=== PATIENT | female | born 1980 | race Caucasian/White ===

== ENCOUNTER 2024-11-12 08:09 | Emergency (ER) | payer MEDICAID, SELFPAY ==
--- NOTE | 2024-11-12 08:14 | EKG_ITS ---
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
[2024-11-12 08:15] VITALS: BP 121/79; PULSE 79; RESP 17; TEMP 36.7; O2SAT 96
[2024-11-12 08:16] VITALS: BMI 33.1
--- NOTE | 2024-11-12 08:36 | XR_ITS ---
Examination: PA lateral chest 2 views TECHNIQUE: Upright PA and lateral chest 2 views Date and time: November 12, 2024, 0844 hours INDICATIONS: Chest pain radiating to the left arm today. FINDINGS: Minimal prominence left ventricle. No pneumonia or pulmonary edema. The osseous structures are intact. IMPRESSION: No active disease.
[2024-11-12 09:03] LABS: HCG Qualitative,Urine Negative
[2024-11-12 09:12] LABS: Amphetamine/Methamp Scrn,U Negative (Negative); Barbiturate Screen,Urine Negative (Negative); Benzodiazepines Screen,Urine Negative (Negative); Benzoylecgonine Screen, Ur Negative (Negative); Fentanyl Screen,Urine Negative (Negative); Opiate Screen,Urine Negative (Negative); THC Screen,Urine Negative (Negative)
[2024-11-12 10:06] LABS: INR 1.0 (0.9-1.3); Partial Thromboplastin Time 27.0 Seconds (22.0-36.0); Prothrombin Time 11.2 Seconds (9.0-12.2)
[2024-11-12 10:07] LABS: B-Type Natriuretic Peptide < 20 pg/mL (0-100); Basophils # (Auto) 0.1 Thou/mm3 (0.0-0.2); Basophils % (Auto) 1 % (0-2.5); Eosinophils # (Auto) 0.2 Thou/mm3 (0.0-0.5); Eosinophils % (Auto) 3 % (0-10); Hematocrit 39.7 % (36.0-46.0); Hemoglobin 13.5 g/dL (12.0-16.0); Immature Granulocytes Auto 0.02 Thou/mm3 (0.00-0.00); Lymphocytes # (Auto) 1.3 Thou/mm3 (1.0-4.8); Lymphocytes % (Auto) 20 % (10-50); Mean Corpuscular HGB Conc 34.0 g/dl (31.0-37.0); Mean Corpuscular Hemoglobin 29.1 pg (25.0-35.0); Mean Corpuscular Volume 86 fL (80-100); Monocytes # (Auto) 0.4 Thou/mm3 (0.0-0.8); Monocytes % (Auto) 7 % (0-12); Neutrophils # (Auto) 4.6 Thou/mm3 (1.8-7.7); Neutrophils % (Auto) 69 % (37-80); Nucleated Red Blood Cell # 0.00 Thou/mm3 (0.00-0.00); Nucleated Red Blood Cell % 0 /100 WBC (0); Platelet Count 314 Thou/mm3 (140-440); RDW Standard Deviation 37.9 fL (36.4-46.3); Red Blood Count 4.64 Miln/mm3 (4.00-5.20); White Blood Count 6.6 Thou/mm3 (3.6-11.0)
[2024-11-12 10:09] LABS: Alanine Aminotransferase 12 U/L (10-49); Albumin, Serum 4.6 gm/dL (3.5-5.0); Albumin/Globulin Ratio 1.8 (1.2-2.2); Alkaline Phosphatase 58 U/L (46-116); Anion Gap 7 (7-16); Aspartate Amino Transferase 15 U/L (0-34); BUN/Creatinine Ratio 10 Ratio (12-20); Bilirubin,Total 0.6 mg/dL (0.3-1.2); Blood Urea Nitrogen 8 mg/dL (9-23); Calcium 9.7 mg/dL (8.3-10.6); Calcium (Corrected) 9.7 mg/dL (8.5-10.1); Carbon Dioxide 28.1 mMol/L (20.0-31.0); Chloride 106 mMol/L (98-107); Creatinine (Component) 0.8 mg/dL (0.6-1.3); Estimated Creatinine Clearance 94.6 mL/min (>60); Globulin 2.5 gm/dL (2.3-3.5); Glucose 90 mg/dL (74-106); Osmolality,Calculated 279 (275-295); Potassium 3.9 mMol/L (3.4-5.1); Sodium 141 mMol/L (136-145); Total Protein 7.1 gm/dL (5.7-8.2); Troponin I < 0.002 ng/mL (0.0-0.045); eGFR > 60 See Note
--- NOTE | 2024-11-12 10:58 | PD.EDRME ---
Rapid Medical Screening Exam RME Arrival date/time: 11/12/24 08:09 44-year-old female presents emergency department today for complaints of chest pain Chief Complaint: Chest Pain Time Seen by Provider: 11/12/24 08:37 Vital signs: Vital Signs Temperature 98.1 F 11/12/24 08:15 Pulse Rate 79 11/12/24 08:15 Respiratory Rate 17 11/12/24 08:15 Blood Pressure 121/79 11/12/24 08:15 Pulse Oximetry (%) 96 11/12/24 08:15 Oxygen Delivery Method Room Air 11/12/24 08:15
[2024-11-12 11:20] LABS: D-Dimer < 250 ng/mL (<600)
[2024-11-12 11:53] LABS: Troponin I < 0.002 ng/mL (0.0-0.045)
--- NOTE | 2024-11-12 12:19 | EDNOTE_ITS ---
ED Chest Pain RME/HPI General Chief Complaint: Chest Pain Stated Complaint: SHARP PAIN L) CHEST, ARM NUMB, BLURRY VISION, SOB Time Seen by Provider: 11/12/24 08:37 Source: patient Arrival date/time: 11/12/24 08:09 44-year-old female with a history of anxiety presents to the emergency room today with a chief complaint of left-sided sternal chest pain that radiates to her arm as well as blurry vision x 2 days Mode of arrival: ambulatory Limitations: no limitations RME / HPI RME / HPI narrative: 11/12/24 08:09 44-year-old female presents emergency department today for complaints of chest pain Related Data Home Medications ?Medication ?Instructions ?Recorded ?Confirmed tirzepatide (weight loss) 2.5 2.5 mg subcut QWEEK 05/1906/16/23 mg/0.5 mL subcutaneous pen injector (Zepbound) Previous Rx's ?Medication ?Instructions ?Recorded alprazolam 0.25 mg tablet (Xanax) 0.25 mg PO TID PRN a nxiety #14 tabs 10/13/23 Allergies Allergy/AdvReac Type Severity Reaction Status Date / Time Penicillins Allergy Intermediate RASH Verified 11/12/24 08:12 Sulfa (Sulfonamide Allergy Intermediate RASH Verified 11/12/24 08:12 Antibiotics) Review of Systems Review of Systems Systems Reviewed: All systems reviewed, normal except as documented Constitutional Constitutional: Reports system reviewed and no additional complaints, except as documented, Denies fatigue, Denies fever(s), Denies headache(s) and Denies weakness Eyes Eyes: Reports system reviewed and no additional complaints, except as documented, Denies blurry vision and Denies change in vision ENT Ears, Nose, Mouth, and Throat: Reports system reviewed and no additional complaints, except as documented, Denies otalgia, Denies headache(s), Denies nasal congestion, Denies throat swelling and Denies vertigo Cardiovascular Cardiovascular: Reports system reviewed and no additional complaints, except as documented, Reports chest pain, Reports chest pain at rest, Reports chest pain with activity, Denies dyspnea and Denies dyspnea on exertion Respiratory Respiratory: Reports system reviewed and no additional complaints, except as documented, Denies chest congestion, Denies cough, Denies dyspnea, Denies dyspnea on exertion and Denies wheezing Gastrointestinal Gastrointestinal: Reports system reviewed and no additional complaints, except as documented, Denies abdominal pain, Denies cramping, Denies nausea and Denies vomiting Genitourinary Genitourinary: Reports system reviewed and no additional complaints, except as documented Musculoskeletal Musculoskeletal: Reports system reviewed and no additional complaints, except as documented and Denies back pain Integumentary/Breasts Skin/Breast: Reports system reviewed and no additional complaints, except as documented and Denies wounds Neurologic Neurologic: Reports system reviewed and no additional complaints, except as documented, Denies confusion, Denies headache(s), Denies lack of coordination, Denies vertigo and Denies weakness Psychiatric Psychiatric: Reports system reviewed and no additional complaints, except as documented, Denies anxiety, Denies confusion, Denies depression, Denies paranoia, Denies suicidal ideation and Denies tactile hallucinations Endocrine Endocrine: Reports system reviewed and no additional complaints, except as documented and Denies fatigue Hematologic/Lymphatic Hematologic/Lymphatic: Reports system reviewed and no additional complaints, except as documented and Denies lymphadenopathy Allergic/Immunologic Allergic/Immunologic: Reports system reviewed and no additional complaints, except as documented, Denies throat swelling, Denies urticaria and Denies wheezing ED Exam General Limitations: Present no limitations General appearance: Present alert and in no apparent distress Head Head exam: Present atraumatic Eye Eye exam: Present normal appearance, PERRL and EOMI ENT ENT exam: Present normal exam, normal oropharynx and mucous membranes moist Neck Neck exam: Present normal inspection, full ROM and trachea midline Chest Chest inspection: Present normal inspection and symmetric chest wall rise Respiratory Respiratory exam: Present normal lung sounds bilaterally; Absent respiratory distress, wheezes, stridor, accessory muscle use or prolonged expiratory phase Cardiovascular Cardiovascular exam: Present regular rate, normal rhythm, normal heart sounds, +S1 and +S2; Absent bradycardia, tachycardia, irregular rhythm, systolic murmur, diastolic murmur, rubs, gallop, clicks or JVD Abdominal Exam Abdominal exam: Present soft and normal bowel sounds; Absent tenderness Extremities Exam Extremities exam: Present normal inspection and full ROM Back Exam Back exam: Present normal inspection and full ROM Neurological Exam Neurological exam: Present alert, oriented X3 and CN II-XII intact Psychiatric Psychiatric exam: Present normal affect and normal mood Skin Skin exam: Present warm, dry, intact and normal color Course Quality Measures none Orders Category Date Time Status EKG (ED ONLY) *Do not use* NOW Care 11/12/24 08:14 Completed EKG (ED Only) Stat Exams 11/12/24 08:14 Draft XR chest 2V Stat Exams 11/12/24 08:36 Completed B-Type Natriuretic Peptide Stat Lab 11/12/24 09:38 Completed CBC Stat Lab 11/12/24 09:38 Completed Comprehensive Metabolic Panel Stat Lab 11/12/24 09:38 Completed D-Dimer Stat Lab 11/12/24 09:38 Completed Drug Screen,Urine Stat Lab 11/12/24 08:41 Completed HCG Qualitative,Urine Stat Lab 11/12/24 08:41 Completed Partial Thromboplastin Time Stat Lab 11/12/24 09:38 Completed Prothrombin Time with INR Stat Lab 11/12/24 09:38 Completed Troponin I Stat Lab 11/12/24 09:38 Completed Troponin I Stat Lab 11/12/24 11:19 Completed Vital Signs Vital signs: Vital Signs Temperature 98.1 F 11/12/24 08:15 Pulse Rate 79 11/12/24 08:15 Respiratory Rate 17 11/12/24 08:15 Blood Pressure 121/79 11/12/24 08:15 Pulse Oximetry (%) 96 11/12/24 08:15 Oxygen Delivery Method Room Air 11/12/24 08:15 O2 saturation 96% within normal limits Chest Pain MDM Narrative MDM Narrative:: 44-year-old female with a history of anxiety presents to the emergency room today with a chief complaint of left-sided sternal chest pain that radiates to her arm as well as blurry vision x 2 days Physical examination shows a strong and regular rhythm S1 and S2 noted patient is hemodynamically stable and in no apparent distress CBC CMP troponin were all within normal limits. EKG shows normal sinus rhythm at [address] deviation Chest x-ray was completed and was negative for any pneumonic infiltrates or any acute findings Patient was discharged and educated to follow-up with primary care provider in the next 24 to 48 hours and return to the emergency room for any evidence of worsening signs or symptoms Patient data External records reviewed:: [facility] previous records Clinical information provided by:: patient Social determinants that could affect healthcare access:: none Patient has the following chronic illnesses:: Anxiety How is presenting disease/condition affected by chronic disease/condition?: exacerbated by Evaluation data The following diagnostics were reviewed and interpreted by me:: lab results and radiology exam(s) Lab and/or radiology exams considered but not ordered:: Labs and radiology exams considered and ordered Interpretation Summary: Chest [id number]: Minimal prominence left ventricle. No pneumonia or pulmonary edema. The osseous structures are intact. IMPRESSION: No active disease. Medications / Prescriptions Medications or Prescriptions considered but not ordered:: Medication not given Medication administrations:: Medication not given Consultations Consultation(s) initiated? (list below): No Diagnosis Chest Pain Differential Diagnosis: stable angina, unstable angina pectoris, atypical chest pain, st elevation myocardial infarction, costochondritis and chest pain Most likely diagnosis given after review of the tests above:: Chest pain Admission Indicated Admission indicated?: not indicated Admission Request Was there a request for admission?: No Disposition Plan Disposition Plan: Discharge Discharge Attestation Discharge Attestation: The patient and all family members were given an opportunity to ask questions and understood the discharge instructions. Discharge instructions specifically effects, indications for sooner follow up or return to the emergency department, and the expected course of current diagnosis. Patient condition: Stable Discharge Plan Plan Patient Disposition: HOME (Self Care) Discharge Disposition comment: Stable Prescriptions/Referrals Prescriptions/Med Rec: No Action alprazolam [Xanax] 0.25 mg tablet 0.25 mg PO TID PRN (Reason: anxiety) Qty: 14 0RF Zepbound 2.5 mg/0.5 mL Pen Injector 2.5 mg SUBCUT QWEEK Referrals: Fer Lewis MD [Primary Care Provider] - In 1 week Problem List Clinical Impression: Chest pain Patient/Caregiver Discharge Instructions Education Materials: ED Chest Pain, Noncardiac Additional Instructions: Please follow-up with your primary care provider in the next 24 to 48 hours Your cardiac examination was within normal limits. You spoke to me about your anxiety. A follow-up appointment with your primary care provider to talk about different anxiety medications may be indicated as you are currently in a lot of stress and are having a lot of anxiety. For any evidence of worsening signs or symptoms please return to the emergency room immediately Print Language: Kazakh Stand Alone Forms: [facility]ada Award Info., Patient Portal Info Letter PA/AIR CARGO SPECIALIST SUPERVISOR Supervising Physician PA/AIR CARGO SPECIALIST SUPERVISOR Supervising Physician: Dr. Ruiz
== END 2024-11-12 12:29 | disposition home or self-care (01) ==
PROVIDERS: Nurse Practitioner Family; Emergency Provider Nurse Practitioner Primary Care; PCP Family Medicine
DX: R07.2 Precordial pain (principal); I45.10 Unspecified right bundle-branch block; H53.8 Other visual disturbances
CPT/HCPCS: 36415; 71046; 80053; 80307; 81025; 83880; 84484; 85025; 85379; 85610; 85730; 93005; 99283